=== PATIENT | male | born 1950 ===

== ENCOUNTER → 2017-10-21 | Outpatient (CLI) | payer MEDICARE ==
--- NOTE | 2017-10-21 18:06 | Diagnostic Imaging Report ---
PROCEDURE: MRI lumbar spine. TECHNIQUE: Multiplanar, multisequence MRI of the lumbar spine was performed without contrast. INDICATION: Left leg and low back pain. Frequent falls. COMPARISON: None. FINDINGS: There are five lumbar-type vertebral bodies presumed for the purposes of this report. There is grade 1 anterolisthesis of L4 on L5. Alignment is otherwise unremarkable. Vertebral body heights are preserved. Benign hemangioma in the L4 vertebral body. Bone marrow signal is otherwise unremarkable. No abnormal signal in the conus which terminates at L1. Normal morphology of the cauda equina. The visualized abdominal and pelvic contents are unremarkable. L1-L2: No spinal canal, lateral recess, or neural foraminal narrowing. L2-L3: Annular disc bulge and facet arthropathy result in moderate right neural foraminal narrowing. No substantial spinal canal or lateral recess narrowing. L3-L4: Annular disc bulge and ligamentous hypertrophy result in mild spinal canal and bilateral lateral recess narrowing. Disc space height loss also contributes to moderate right and mild left neural foraminal narrowing. L4-L5: The anterolisthesis combines with prolific facet arthropathy and ligamentous hypertrophy to result in severe spinal canal narrowing. Disc space height loss also contributes to advanced bilateral neural foraminal narrowing. L5-S1: No spinal canal, lateral recess, or neural foraminal narrowing. IMPRESSION: 1. 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 There is also advanced bilateral neural foraminal narrowing at this level. 2. Additional levels of less severe spinal canal, lateral recess, and neural foraminal narrowing detailed above level by level. 3. No acute osseous findings. Dictated by: Dictated on workstation # [id number]
== END ==
LOC: RAD 16:39
PROVIDERS: ATTEND Nurse Practitioner Family
DX: M48.061 Spinal stenosis, lumbar region without neurogenic claudication (principal); M51.26 Other intervertebral disc displacement, lumbar region; M43.16 Spondylolisthesis, lumbar region; M47.816 Spondylosis without myelopathy or radiculopathy, lumbar region
CPT/HCPCS: 72148